=== PATIENT | male | born 1950 | race Caucasian/White ===

== ENCOUNTER 2017-12-31 09:03 | Emergency (ER) | payer MEDICARE ==
--- NOTE | 2017-12-31 12:19 | RAD ---
FRONTAL RADIOGRAPH CHEST FOUR VIEWS RIGHT RIBS: Date: 12-31-17 Comparison: None. History: Fall, injury, worsening pain. FINDINGS: The frontal radiograph of the chest demonstrates incompletely imaged dorsal column stimulators overly ing the lower cervical spine. There is no pneumothorax, pleural fluid, lobar consolidation, or alveolar edema. There is increased l inear interstitial density throughout both lungs with pulmonary hyperinflation. Post-surgical clips are noted in the left axillary region. Four dedicated rib images demonstrate no evidence for a displaced right sided rib fracture. IMPRESSION: 1. No displaced right sided rib fracture seen. POS: [facility]
== END 2017-12-31 11:05 | disposition home or self-care (01) ==
LOC: ERS 09:03
DX: S20.211A Contusion of right front wall of thorax, initial encounter (principal); I10 Essential (primary) hypertension; F32.9 Major depressive disorder, single episode, unspecified; F17.210 Nicotine dependence, cigarettes, uncomplicated; Z79.899 Other long term (current) drug therapy; Z79.82 Long term (current) use of aspirin; W18.2XXA Fall in (into) shower or empty bathtub, initial encounter

== ENCOUNTER 2025-01-02 12:26 | Emergency (ER) | payer MEDICARE ==
[2025-01-02] MEDS ORDERED: Acetaminophen 500 MG TAB ONE (13:33)
== END 2025-01-02 14:51 | disposition home or self-care (01) ==
LOC: ERS 12:26
DX: S09.90XA Unspecified injury of head, initial encounter (principal); M25.512 Pain in left shoulder; I10 Essential (primary) hypertension; F17.210 Nicotine dependence, cigarettes, uncomplicated; W19.XXXA Unspecified fall, initial encounter
CPT/HCPCS: 70450; 70486; 71045; 72125; 93005

== ENCOUNTER 2025-04-04 08:27 | Outpatient (CLI) | payer MEDICARE | END 2025-04-04 08:28 | disposition home or self-care (01) | LOC: BICCT 08:27 | PROVIDERS: ATTEND Family Medicine | DX: Z12.2 Encounter for screening for malignant neoplasm of respiratory organs (principal); F17.218 Nicotine dependence, cigarettes, with other nicotine-induced disorders; J43.9 Emphysema, unspecified | CPT/HCPCS: 71271 ==